=== PATIENT | male | born 1975 | race Caucasian/White ===

== ENCOUNTER 2017-03-02 12:38 | Emergency (ER) | payer BC ==
[2017-03-02 12:46] VITALS: BP 147/92
--- NOTE | 2017-03-02 13:03 | UC ---
Upper Extremity HPI - HPI Summary HPI Summary: 41 YEAR OLD MALE PRESENTS WITH RIGHT ARM PAIN. THE PAIN IS DULL AND IT IS ONGOING. THE PATIENT WAS GIVEN THE FOLLOWING DIFFERENTIAL OF CARPAL TUNNEL VS DVT VS SKELETOMUSCULAR PAIN. VS CARDIAC. PATIENT IS CONCERNED ABOUT A DVT AND WILL GO TO THE ER. - History of Current Complaint Chief Complaint: UCUpperExtremity Stated Complaint: PAIN IN UPPER RIGHT ARM Time Seen by Provider: 03/02/17 13:02 Hx Obtained From: Patient Onset/Duration: Sudden Onset Severity Initially: Moderate Severity Currently: Moderate Pain Scale Used: 0-10 Numeric - 5 Location Of Pain: Is Discrete @ - DULL PAIN MEDIAL ASPECT OF RIGHT ARM ABOVE ELBOW Character: Sharp, Dull, Aching Aggravating Factor(s): Movement Alleviating Factor(s): Nothing Associated Signs And Symptoms: Positive: Negative - Risk Factors Non-Orthopedic Risk Factor: Negative DVT Risk Factors: Negative Septic Arthritis Risk Factor: Negative - Allergies/Home Medications Allergies/Adverse Reactions: Allergies Allergy/AdvReac Type Severity Reaction Status Date / Time Penicillins Allergy Rash Verified 03/02/17 12:46 Home Medications: Home Medications Propranolol TAB* [Inderal TAB*] 10 mg PO DAILY 03/02/17 [History Confirmed 03/02] PMH/Surg Hx/FS Hx/Imm Hx Previously Healthy: Yes - Surgical History Surgical History: Yes Surgery Procedure, Year, and Place: MOLES REMOVED FROM BACK - Social History Alcohol Use: Daily Alcohol Amount: 1 drink daily Substance Use Type: None Smoking Status (MU): Never Smoked Tobacco - Immunization History Most Recent Influenza Vaccination: Not UTD Review of Systems Constitutional: Negative Skin: Negative Eyes: Negative ENT: Negative Respiratory: Negative Cardiovascular: Negative Gastrointestinal: Negative Genitourinary: Negative Motor: Negative Neurovascular: Negative Musculoskeletal: Negative Neurological: Negative Psychological: Negative All Other Systems Reviewed And Are Negative: Yes Physical Exam Triage Information Reviewed: Yes Vital Signs: Initial Vital Signs Temp 36.9 C 03/02/17 12:41 Pulse 84 03/02/17 12:41 Resp 16 03/02/17 12:41 BP 147/92 03/02/17 12:41 Pulse Ox 98 03/02/17 12:41 Vital Signs Reviewed: Yes Eye Exam: Normal ENT Exam: Normal Dental Exam: Normal Neck exam: Normal Neck: Positive: 1 Respiratory Exam: Normal Cardiovascular Exam: Normal Abdominal Exam: Normal Musculoskeletal Exam: Normal Neurological Exam: Normal Psychological Exam: Normal Skin Exam: Normal Upper Extremity Course/Dx - Differential Dx/Diagnosis Provider Diagnoses: RIGHT MEDIAL ARM PAIN Discharge - Discharge Plan Condition: Stable Disposition: HOME Patient Education Materials: Paresthesia (ED), Arthralgia (ED), Arm Pain (ED) Referrals: Shan Huang MD [Primary Care Provider] -
== END 2017-03-02 14:10 | disposition home or self-care (01) ==
LOC: UCEAST 12:38
DX: M79.601 Pain in right arm (principal); Z88.0 Allergy status to penicillin
CPT/HCPCS: 99211; G0463

== ENCOUNTER 2018-09-17 09:42 | Emergency (ER) | payer BC ==
[2018-09-17 10:01] VITALS: BP 142/93
--- NOTE | 2018-09-17 10:53 | ED ---
Complex/Multi-Sys Presentation - HPI Summary HPI Summary: 42-year-old male presents with muscle aches for the past couple weeks. He states aches are diffuse in all his joints but knees seem to both him the most. Denies any edema. He states that past couple nights has been having fevers and night sweats. He denies any family history of rheumatolgic disorders. Denies any rash. Denies any known tick exposure. Has no medical conditions. Never had this before. No weakness. No neck stiffness. No headache. No urinary symptoms. No cough or sore throat. no abdominal pain or bloody stool. no other symptoms. - History Of Current Complaint Chief Complaint: UCGeneralIllness Time Seen by Provider: 09/17/18 10:31 - Allergies/Home Medications Allergies/Adverse Reactions: Allergies Allergy/AdvReac Type Severity Reaction Status Date / Time Penicillins Allergy Intermediate Rash Verified 09/17/18 10:01 PMH/Surg Hx/FS Hx/Imm Hx Endocrine/Hematology History: Denies: Hx Diabetes Cardiovascular History: Denies: Hx Hypertension, Hx Pacemaker/ICD History: Denies: Hx Renal Disease Sensory History: Denies: Hx Hearing Aid Psychiatric History: Denies: Hx Panic Disorder - Surgical History Surgery Procedure, Year, and Place: MOLES REMOVED FROM BACK Infectious Disease History: No Infectious Disease History: Denies: Traveled Outside the [place] in Last 30 Days - Family History Known Family History: Positive: Other - no rheumatologic disorders - Social History Alcohol Use: Daily Alcohol Amount: 1 drink daily Substance Use Type: Reports: None Smoking Status (MU): Never Smoked Tobacco Review of Systems Positive: Fever, Fatigue Negative: Sore Throat Negative: Chest Pain Negative: Shortness Of Breath Positive: Myalgia - diffuse All Other Systems Reviewed And Are Negative: Yes Physical Exam Triage Information Reviewed: Yes Vital Signs On Initial Exam: Initial Vitals Temp Pulse Resp BP Pulse Ox 98.9 F 83 16 142/93 100 09/17/18 09:58 09/17/18 09:58 09/17/18 09:58 09/17/18 09:58 09/17/18 09:58 Vital Signs Reviewed: Yes Appearance: Positive: Well-Appearing Skin: Positive: Warm, Dry Head/Face: Positive: Normal Head/Face Inspection Eyes: Positive: Normal, EOMI, BHAVNA, Conjunctiva Clear ENT: Positive: Normal ENT inspection, Pharynx normal, TMs normal Respiratory/Lung Sounds: Positive: Clear to Auscultation, Breath Sounds Present Cardiovascular: Positive: Normal, RRR Musculoskeletal: Positive: Strength/ROM Intact - upper and lower extremities, Other - good pulses. Negative: Edema Left, Edema Right Neurological: Positive: Normal Psychiatric: Positive: Normal Diagnostics - Vital Signs Vital Signs Temp Pulse Resp BP Pulse Ox 09/17/18 09:58 98.9 F 83 16 142/93 100 - Laboratory Lab Statement: Any lab studies that have been ordered have been reviewed, and results considered in the medical decision making process. Complex Multi-Symp Course/Dx Course Of Treatment: 42-year-old male presents with muscle aches for the past couple weeks. He states aches are diffuse in all his joints but knees seem to both him the most. Denies any edema. He states that past couple nights has been having fevers and night sweats. He denies any family history of rheumatolgic disorders. Denies any rash. Denies any known tick exposure. Has no medical conditions. Never had this before. No weakness. No neck stiffness. No headache. No urinary symptoms. No cough or sore throat. On exam has a normal physical exam. vitals normal. Has good strength in all extremities. flu neg. Discussed will get a lyme titer but should follow with primary for continued testing for potential rheumatologic disorder. will have follow up with primary about blood pressure as in hypertension range. Patient understands and agrees with plan. - Diagnoses Differential Diagnoses/HQI/PQRI: Other - influenza, lyme, rheumatologic disorder Provider Diagnoses: Fever, Joint ache Discharge - Sign-Out/Discharge Documenting (check all that apply): Patient Departure All imaging exams completed and their final reports reviewed: No Studies - Discharge Plan Condition: Good Disposition: HOME Referrals: Shan Huang MD [Primary Care Provider] - Additional Instructions: follow up with primary for continued testing will call if lyme comes back positive continue ibuprofen for muscles aches Return to if develop any new or worsening symptoms - Billing Disposition and Condition Condition: GOOD Disposition: Home
[2018-09-17 11:15] LABS: Influenza A Molecular NEGATIVE (Negative); Influenza B Molecular NEGATIVE (Negative)
== END 2018-09-17 11:35 | disposition home or self-care (01) ==
LOC: UCEAST 09:42
DX: R50.9 Fever, unspecified (principal); R53.83 Other fatigue; M25.562 Pain in left knee; M25.561 Pain in right knee; M79.10 Myalgia, unspecified site; Z88.0 Allergy status to penicillin
CPT/HCPCS: 36415; 86618; 99211; G0463